=== PATIENT | female | born 1940 | race African-American/Black ===

== ENCOUNTER → 2021-07-30 | Outpatient (CLI) | payer MEDICARE, OTHER ==
[~2021-07-30] VITALS: Ht 170.2 cm; Wt 80.8 kg
[~2021-07-30] MED LIST: ASPIRIN E.C. 8181 MG PO; CALCIUM 600 MG1 EAC2 PO; CENTRUM SILVER1 CTB PO; GLUCOPHAGE850 MG/TAB PO; RT ADVAIR 228 DISKUS IH; TENORETIC 50 501 TAB PO
[2021-07-30 12:04] VITALS: BP 183/85; PULSE 61; TEMP 98.9
[2021-07-30 13:00] VITALS: BP 166/68; PULSE 53
== END ==
LOC: COL.RAD 11:41
DX: E04.1 Nontoxic single thyroid nodule (principal)
CPT/HCPCS: 32106

== ENCOUNTER 2022-01-15 08:44 | Day surgery (SDC) | payer MEDICARE, OTHER ==
[~2022-01-15] VITALS: Ht 170.2 cm; Wt 81.2 kg
[2022-01-15 09:23] VITALS: BP 179/93; PULSE 53; TEMP 97.7
[2022-01-15] MEDS ORDERED: EUTHYROX50 MCG PO (09:26)
--- NOTE | 2022-01-15 11:05 | NUR ---
PATIENT RETURNS TO BAY 5 PER CART AND STATES THAT SHE IS NEEDING TO USE THE RESTROOM. AMBULATORY FROM THE CART TO BATHROOM. IV TO INT. PROVIDED CALL LIGHT CORD AND INSTRUCTED TO CALL FOR ASSIST.
[2022-01-15 11:25] VITALS: BP 175/87; PULSE 60
--- NOTE | 2022-01-15 11:25 | NUR ---
TO BAY 5 WITH ONE PERSON ASSIST. IV WAS CONVERTED TO INT.
[2022-01-15 11:40] VITALS: BP 183/88; PULSE 64
--- NOTE | 2022-01-15 11:40 | NUR ---
ROOM AIR SATS 99%. SON IN THE ROOM.
--- NOTE | 2022-01-15 11:45 | NUR ---
DR. WHITEHEAD IN THE ROOM AND TALKS WITH THE PATIENT AND ALL QUESTIONS ANSWERED.
--- NOTE | 2022-01-15 12:00 | NUR ---
DISMISSAL INSTRUCTIONS GIVEN AND PATIENT VOICES UNDERSTANDING OF THESE. PATIENT DISMISSED TO HOME DRIVEN BY SON AND TAKEN TO THE VEHICLE WITH DISMISSAL INSTRUCTIONS IN HAND. TAKEN TO THE VEHICLE IN WHEELCHAIR.
== END 2022-01-15 12:00 | disposition home or self-care (01) ==
LOC: SDCO 08:44
DX: Z12.11 Encounter for screening for malignant neoplasm of colon (principal); D12.3 Benign neoplasm of transverse colon; D12.5 Benign neoplasm of sigmoid colon; K57.30 Diverticulosis of large intestine without perforation or abscess without bleeding
CPT/HCPCS: J2704; J3010; J7030